=== PATIENT | male | born 1970 | race Two or more races ===

== ENCOUNTER 2017-04-18 18:37 | Emergency (ER) | payer MEDICAID, OTHER ==
[~2017-04-18] VITALS: Ht 165.1 cm; Wt 86.0 kg
[2017-04-18] MEDS ORDERED: SODIUM CHLORIDE 0.9% 1,000 ML IV ONE (23:26)
[2017-04-18] MEDS ORDERED: LEVOFLOXACIN 750MG PREMIX 150 ML IV ONE (23:30)
[2017-04-18] MEDS ORDERED: GUAIFENESIN/CODEINE 200-20MG/10ML UDC PO ONE (23:30)
[2017-04-18 23:48] LABS: HEMATOCRIT. 40.9 % (42.0-52.0); MEAN CORPUSCULAR HEMOGLOBIN 28.8 pg (28.0-32.0); MEAN CORPUSCULAR VOLUME 84.4 fL (80.0-94.0); MEAN PLATELET VOLUME 8.1 fl (7.4-10.4); PLATELET 246 x1000/uL (130-400); RED BLOOD CELL COUNT 4.84 mill/uL (4.7-6.1); RED CELL DISTRIBUTION WIDTH 13.6 % (11.6-14.6)
[2017-04-18 23:50] LABS: CHLORIDE 102 mEq/L (98-107)
[2017-04-19] LABS: CARBON DIOXIDE 28 mEq/L (21-32)
[2017-04-19 00:24] LABS: PLATELET ESTIMATE NORMAL
[2017-04-19 01:19] VITALS: BP 140/68
== END 2017-04-19 01:41 | disposition home or self-care (01) ==
LOC: ER 18:37
DX: J18.9 Pneumonia, unspecified organism (principal); D72.829 Elevated white blood cell count, unspecified; I10 Essential (primary) hypertension; K21.9 Gastro-esophageal reflux disease without esophagitis
CPT/HCPCS: 36415; 71010; 80053; 85025; 96365; 96366; 99285; J1956; J7030